=== PATIENT | female | born 1990 ===

== ENCOUNTER 2017-12-11 19:23 | Outpatient (CLI) | payer BC ==
[~2017-12-11] VITALS: Ht 162.6 cm; Wt 97.7 kg
[2017-12-11] MEDS ORDERED: PROFERRIN ES12 MG PO (19:34)
[2017-12-11] MEDS ORDERED: ONE DAILY MULTI1 TA1 (19:34)
[2017-12-11] MEDS ORDERED: PRENATAL MVI (19:35)
[2017-12-11 20:30] VITALS: BP 122/70; PULSE 91; TEMP 98.3
[2017-12-14] MEDS ORDERED: IRON 27 MG PO (19:28)
[2017-12-14] MEDS ORDERED: NATURAL IRON65 MG PO (19:29)
== END 2017-12-11 20:30 | disposition home or self-care (01) ==
LOC: LDRO 19:23
DX: O62.9 Abnormality of forces of labor, unspecified (principal); Z3A.39 39 weeks gestation of pregnancy

== ENCOUNTER → 2017-12-18 | Outpatient (CLI) | payer BC ==
[~2017-12-18] MED LIST: IRON 27 MG PO; MOTRIN 600600 MG/TAB PO; NATURAL IRON65 MG PO; ONE DAILY MULTI1 TA1; PERCOCET 325 MG1 TA2 PO; PRENATAL MVI; PROFERRIN ES12 MG PO; SENOKOT S 50 MG1 TAB PO
== END ==
LOC: LAC 10:47
DX: Z39.1 Encounter for care and examination of lactating mother (principal); Z71.89 Other specified counseling